=== PATIENT | female | born 1975 | race Caucasian/White ===

== ENCOUNTER 2016-05-27 09:30 | Inpatient (IN) ==
--- NOTE | 2016-05-27 10:07 | Emergency Department Note ---
Shanique Francisco Brittany, am scribing for, and in the presence of, Silvio Banegas MD 09: 57. Makenzie Francisco James D, MD, personally performed the services described in this documentation, ascribed by [place] in my presence, and it is both accurate and complete . Arrival - Arrival Chief Complaint: Abdominal / Flank Pain Stated Complaint: SEVERE LRQ PAIN ED Nursing Triage Note: C/O right lower abdominal pain and nausea starting last night at 830pm. Denies vomiting or diarrhea. Mode of Arrival: Ambulatory Limitations: No Limitations Source: Patient Time Seen by Provider: 05/27/16 09:45 - History of Present Illness HPI Narrative: This is a 40 y/o white female,who presents to the ED with c/o abd pain which started last night. She locailzes the pain to the lower right quadrant. She denies any vomiting or dysruia but notes some nausea.Her LNMP was 05/20/2016. Pt has no other complaints/pain in the ED at this time. Pt has a PMHx of migraines and HTN. Pt denies a surgical Hx. Pt denies a family medical Hx. Pt denies a social Hx. Onset (ago): hour(s) (Started last night) Consistency: constant Severity: moderate Date of Last Menstrual Period: 05/19/16 Allergies/Adverse Reactions: Allergies Allergy/AdvReac Type Severity Reaction Status Date / Time Penicillins AdvReac ANAPHYLAXIS Verified 05/27/16 09:34 Home Medications: Home Medications Medication Instructions Recorded Confirmed Type Sertraline [Zoloft] 100 mg PO BID 05/27/16 05/27/16 History Topiramate [Topamax] 25 mg PO DAILY 05/27/16 05/27/16 History Triamterene/Hydrochlorothiazid 1 each PO DAILY 05/27/16 05/27/16 History [Triamterene-Hctz 37.5-25 mg Tb] lamoTRIgine [LaMICtal Tab] 100 mg PO BID 05/27/16 05/27/16 History Review of System - Review of System 12 point system: reviewed and no additional remarkable complaints except as stated - Review of System Gastrointestinal: Present: abdominal pain, nausea. Absent: vomiting Genitourinary female: Absent: dysuria Medical,Surgical,& Family Hx - Medical History Cardio: History of: Hypertension Neurology: History of: Migraine - Social History Smoking Status: Never smoker Frequency of Alcohol Use: None Type of Drug Use: None Exam Vital Signs: Vital Signs Temperature 97 F L 05/27/16 09:34 Pulse Rate 82 05/27/16 10:38 Respiratory Rate 22 05/27/16 10:38 Blood Pressure 122/77 05/27/16 10:38 O2 Sat by Pulse Oximetry 99 05/27/16 10:38 GENERAL: This is a well-nourished well-developed white female in no apparent distress. VITAL SIGNS: Reviewed HEENT: Head is atraumatic and normocephalic. Pupils are equal round react to light. Extraocular movements are intact. Oropharynx is benign with moist mucous membranes. NECK: Neck is soft and supple without tenderness. There are no masses. There is no lymphadenopathy. LUNGS: Lungs are clear to auscultation. Chest rises symmetrically. There is no chest wall tenderness. CV: Heart is regular rate and rhythm without murmurs rubs or gallops. ABDOMEN: Abdomen is soft, right lower quadrant abdominal tenderness to palpation with some guarding, no rib. There are no abdominal abnormal masses palpated. There is no organomegaly. Bowel sounds are present and active. SKIN: Skin is warm and dry. No rash. EXTREMITIES: Patient has full range of motion without tenderness. There is no pedal edema. Results - Labs CBC & BMP: 05/27/16 10:04 Lab Results: I have reviewed the patients labs - Diagnostic Findings Procedure: Abdominal x-ray: image reviewed by me (Nonspecific gas pattern, no free air, gas in the rectum), Chest x-ray: image reviewed by me (No cardiomegaly , no pleural effusions, no infiltrate) Disposition Clinical Impression: RLQ abdominal pain Case discussed with: patient Condition: Stable
[2016-05-27 10:16] LABS: Basophils % 0.2 % (0.0-0.8); Eosinophils % 0.2 % (0.00-10.9); Hemoglobin 12.1 GM/DL (12.0-16.0); Immature Granulocytes % 0.4 %; Immature Granulocytes Absolute 0.07 #; Lymphocytes # 1.9 10*3/uL (1.4-4.0); Lymphocytes % 11.3 % (21.3-54.2); Mean Corpuscular HGB Conc 31.8 GM/DL (32-36); Mean Corpuscular Hemoglobin 27 PG (27-34); Mean Corpuscular Volume 83.3 FL (87-102); Monocytes # 0.8 10*3/uL (0.11-0.8); Monocytes % 4.9 % (1.7-12.7); Neutrophils # 14.2 10*3/uL (1.4-7.4); Platelet Count 280 T/CUMM (130-400); Red Blood Count 4.56 MC/CUMM (3.8-5.5); Red Cell Distribution Width 14.1 % (9.3-17.3); White Blood Count 17.1 T/CUMM (4-12)
[2016-05-27 10:22] LABS: Apearance,Urine Slightly Hazy (Clear); Bacteria,Urine Occasional /HPF (Few); Bilirubin,Urine Negative (Negative); Blood, Urine Negative (Negative); Glucose,Urine (UA) Negative (Negative); Ketones,Urine Negative (Negative); Mucus,Urine Occasional /LPF (Occasional); Nitrite,Urine Negative (Negative); Protein,Urine Negative; RBC,Urine 1 /HPF (0-4); Squamous Epithelial Cell,Urine Occasional /HPF (0-10); Urine Color Yellow (Yellow); Urine Specific Gravity 1.019 (1.001-1.035); Urine Urobilinogen < 2.0 EU/DL (0.2-1.0); WBC,Urine 1 /HPF (0-6)
--- NOTE | 2016-05-27 10:46 | XRay Report ---
Portable chest Date: 05/27/2016 Clinical history: Generalized abdominal pain Comparison: None Technique: Portable AP sitting chest Findings: The heart is normal in size. Expiratory chest with no definite acute parenchymal findings. Unremarkable mediastinum and osseous structures. Impression: Negative expiratory chest. PROCEDURE INTERPRETED AT [facility] DEPARTMENT OF RADIOLOGY Final Report Signed by: Dr. Hannah Dorsey
[2016-05-27 10:47] LABS: Albumin 3.9 G/DL (3.4-5.0); Bilirubin,Total 0.4 MG/DL (0.2-1.0); Calcium 9.1 MG/DL (8.5-10.1); Osmolality,Calculated 271.8 MOS/KG (273-304); Potassium 3.4 MMOL/L (3.5-5.1); Total Protein 8.1 G/DL (6.4-8.3)
--- NOTE | 2016-05-27 10:55 | XRay Report ---
Exam: XR abdomen 2V Date: 05/27/2016 9:55 AM Comparison: None Indication: Generalized abdominal pain Technique:[Supine and erect abdomen] Findings: Nonobstructed bowel gas pattern with no free air. Scattered fecal material in the colon. Nonspecific calcifications in the pelvis. No acute osseous findings. Impression: Nonobstructed bowel gas pattern. Increased fecal material in the colon. PROCEDURE INTERPRETED AT [facility] DEPARTMENT OF RADIOLOGY Final Report Signed by: Dr. Hannah Dorsey
--- NOTE | 2016-05-27 11:29 | CT Report ---
Exam: CT abdomen pelvis w con Date: 05/27/2016 10:57 AM Comparison: None Indication: Right lower quadrant pain Technique:[Sequential axial scans of the abdomen and pelvis were obtained following injection of 100 cc of Omnipaque 350. Coronal and sagittal 2-D reconstructions were obtained. Total DLP: 1884.60] Findings: No acute findings at the visualized lung bases. The liver is borderline in size with the left lobe extending to the level of the spleen. Diffuse fatty infiltration with no masses, dilated ducts, or calcified gallstones. The spleen is borderline in size to minimally enlarged. The pancreas, adrenal glands, and kidneys have an unremarkable appearance except for probably tiny left lower pole renal cyst. Calcification in the wall of the nondilated abdominal aorta with no adjacent adenopathy. Small fat-containing umbilical hernia with no dilatation of the small bowel. Dilated retrocecal appendix measuring 13 mm in diameter. Adjacent fluid and soft tissue stranding. No free air or evidence of diverticulitis. No pelvic masses are identified. Unremarkable urinary bladder. Degenerative changes are noted. Impression: Evidence of acute appendicitis. Fatty infiltration of the liver which is borderline in size. The spleen is borderline in size to minimally enlarged. Possible minute left lower pole renal cyst. Small umbilical hernia. PROCEDURE INTERPRETED AT [facility] DEPARTMENT OF RADIOLOGY Final Report Signed by: Dr. Hannah Dorsey
[2016-05-27] MEDS ORDERED: metroNIDAZOLE INJ 500 MG in PREMIX 1 EACH IV ONE (12:23)
[2016-05-27] MEDS ORDERED: LEVOFLOXACIN INJ 500 MG in PREMIX 1 EACH IV ONE (12:23)
[2016-05-27] MEDS ORDERED: ONDANSETRON 4 MG/2 ML VIAL IV PRN ×2 (12:25→18:09)
[2016-05-27] MEDS ORDERED: ACETAMINOPHEN 325 MG TABLET PO PRN (12:25)
[2016-05-27] MEDS ORDERED: LACTATED RINGERS 1,000 ML IV SCH (12:30)
[2016-05-27] MEDS: HYDROmorphone 2 MG/1 ML VIAL IV PRN ×6 (12:30→22:57)
[2016-05-27] MEDS ORDERED: BISACODYL 5 MG TABLET PO PRN (12:32)
--- NOTE | 2016-05-27 13:10 | General Surg History&Physical ---
Assessment and Plan - Time spent with patient Time spent with patient: Less than 30 minutes (1) Acute appendicitis Status: Acute Assessment and plan: 40WF w history of migraines and melanoma admitted by dr guadalupe w acute appendicitis and leukocytosis. she will be taken to the OR for laparoscopic appendectomy today by dr guadalupe. dr guadalupe to see and examine pt. Current Visit: Yes History of Present Illness Chief complaint: abdominal pain/nausea History of present illness: 40WF w history of migraines and melanoma came into ED w 1 day history of abdominal pain and nausea. pt states the pain started in the center of her abdomen about 830 last night and progressed in severity. it slowly moved into her RLQ and is associated w nausea but no vomiting. she denies SOB, CP, fevers, or any abdominal surgery. pt's CT scan is showing evidence of acute appendicitis w dilated retrocecal appendix w adjacent fluid and stranding. it is also showing a small umbilical hernia. her wbc are 17.1 w a left shift and K + is low at 3.4. upon exam, she is uncomfortable due to pain and her abd is soft , but she is very tender throughout. pain is greater in RLQ w rebound. dr guadalupe has been asked to admit. Home Medications Medication Instructions Recorded Confirmed Type Sertraline [Zoloft] 100 mg PO BID 05/27/16 05/27/16 History Topiramate [Topamax] 25 mg PO DAILY 05/27/16 05/27/16 History Triamterene/Hydrochlorothiazid 1 each PO DAILY 05/27/16 05/27/16 History [Triamterene-Hctz 37.5-25 mg Tb] lamoTRIgine [LaMICtal Tab] 100 mg PO BID 05/27/16 05/27/16 History Allergies Allergy/AdvReac Type Severity Reaction Status Date / Time Penicillins AdvReac ANAPHYLAXIS Verified 05/27/16 09:34 Medical,Surgical,& Family Hx - Medical History Cardio: History of: Hypertension Neurology: History of: Migraine - Social History Smoking Status: Never smoker Frequency of Alcohol Use: None Type of Drug Use: None Exam - Constitutional Vitals: Period Temp Pulse Resp BP Sys/Sidhu Pulse Ox Last 24 Hr 97 F-97 F 74-105 16-22 122-143/77-88 99-100 40WF, mild distress due to pain, alert and oriented chest clear cv rrr abd soft, ttp throughout, greater in RLQ, rebound ext no edema - Constitutional Constitutional: Present: as per HPI Quality Measures - VTE Contraindication to Pharmacological VTE Prophylaxis: High Risk of Bleeding Results - Labs CBC & BMP: 05/27/16 10:04 05/27/16 10:04 Lab Results: I have reviewed the past 24 hour labs - Diagnostic Findings Procedure: CT Abdomen and Pelvis: report reviewed by me (acute appy)
[2016-05-27] MEDS ORDERED: DIAZEPAM 5 MG TABLET PO ONE (13:24)
[2016-05-27] MEDS ORDERED: LEVOFLOXACIN INJ 100 ML IV ONE (13:57)
[2016-05-27] MEDS ORDERED: metroNIDAZOLE 500 MG/100 ML PREMIX IV ONE (13:57)
[2016-05-27] MEDS ORDERED: KETOROLAC 15 MG/1 ML VIAL IV PRN (14:00)
[2016-05-27] MEDS ORDERED: DIAZEPAM 5 MG TABLET ONE (14:21)
[2016-05-27] MEDS ORDERED: PANTOPRAZOLE 40 MG TABLET PO ONE ×2 (14:21→14:25)
[2016-05-27] MEDS ORDERED: BUPIVACAINE MPF 0.25% /EPI 30 ML VIAL ONE (15:53)
[2016-05-27] MEDS ORDERED: LIDOCAINE 1%/EPI INJ 20 ML VIAL ONE (15:54)
[2016-05-27] MEDS ORDERED: HYDROmorphone 2 MG/1 ML VIAL ONE (16:13)
[2016-05-27] MEDS ORDERED: ROCURONIUM 100 MG/10 ML VIAL IV ONE (16:35)
[2016-05-27] MEDS ORDERED: LIDOCAINE 2% 5 ML VIAL ONE (16:35)
[2016-05-27] MEDS ORDERED: DEXAMETHASONE 10 MG/1 ML VIAL ONE (16:35)
[2016-05-27] MEDS ORDERED: KETOROLAC 30 MG/1 ML VIAL ONE (16:35)
[2016-05-27] MEDS ORDERED: GLYCOPYRROLATE 0.4 MG/2 ML VIAL ONE (16:35)
[2016-05-27] MEDS ORDERED: NEOSTIGMINE 10 MG/10 ML VIAL ONE (16:35)
[2016-05-27] MEDS ORDERED: ONDANSETRON 4 MG/2 ML VIAL ONE (16:35)
[2016-05-27] MEDS ORDERED: PROPOFOL 200 MG/20 ML VIAL IV ONE (16:35)
--- NOTE | 2016-05-27 17:42 | Operative Note ---
Date of procedure: 05/27/16 Pre-op diagnosis: acute appendicitis Post-op diagnosis: same Procedure: Procedure performed: Laparoscopic appendectomy Procedure in detail: After informed consent was obtained, the patient was taken operating suite and laid supine on the operating table. After general anesthesia was induced Chacon catheter was placed and the abdomen was prepped and draped in usual sterile fashion. After procedural pause local anesthetic and straighten the skin and subcutaneous tissue above the umbilicus. Incision was made and dissection carried down through skin and soft tissue. Fascia identified and grasped with Ionia's and elevated. Fascial incision was made. Abdominal cavity was entered bluntly. Finger sweep revealed no adhesions. Crespo trocar was placed under direct visualization. Pneumoperitoneum achieved. Camera was inserted. Bowel mesentery inspected and found be free of any violation. Next patient was placed in Trendelenburg position rotated to the left. 5 mm suprapubic and left lower quadrant trochars were placed under visualization. The appendix was identified in the right lower quadrant. It appeared acutely inflamed. The appendix was grasped and elevated. A window was created in the mesentery at the base of the appendix. The appendiceal base was then transected using a DANIELLA stapling device with a vascular load. Mesoappendix was transected in the same fashion. Appendix was placed in the Endo Catch sac and removed through the Crespo trocar site. Pneumoperitoneum reachieved and the right lower quadrant was irrigated and suctioned. Staple lines found be intact. There was some slight oozing along the mesenteric staple line which was controlled with cautery. Afterward there was good hemostasis with no leakage of any succus or sanguinous fluid. All the irrigant remained clear and resection. Trochars were removed as the abdomen desufflated. Fascia at the Crespo trocar site was closed using 0 Vicryl figure- of-eight interrupted suture. Wounds irrigated and suction skin closed with georgie. Sterile dressings applied. The patient was excellent and taken recovery room in stable condition. All lap and needle counts were correct at the end of the case. Anesthesia: GETA Surgeon / Physician: Juan Diego Kang Estimated blood loss: other (less than 10 mL) Specimens: other (appendix) Condition: stable Disposition: PACU Results - Labs CBC & BMP: 05/27/16 10:04 05/27/16 10:04 Discharge Plan - Discharge Medications No Action Topiramate [Topamax] 25 mg PO DAILY Triamterene/Hydrochlorothiazid [Triamterene-Hctz 37.5-25 mg Tb] 1 each PO DAILY lamoTRIgine [LaMICtal Tab] 100 mg PO BID Sertraline [Zoloft] 100 mg PO BID - Follow Up or Referral - Forms/Instructions
--- NOTE | 2016-05-27 17:48 | Anesthesia ---
Anesthesia Post OP - Post Ansesthetic Evaluation Patient seen in post op: Yes Resp: within normal limits CV: within normal limits Mental: within normal limits Temp: within normal limits [id number]: within normal limits Nausea and Vomiting: within normal limits Pain: within normal limits
[2016-05-27] MEDS ORDERED: SEVOFLURANE 1 UNIT/15 MINUTE INH ONE (17:51)
[2016-05-27] MEDS ORDERED: fentaNYL 100 MCG/2 ML VIAL ONE (17:52)
[2016-05-27] MEDS ORDERED: MIDAZOLAM 2 MG/2 ML VIAL ONE (17:52)
[2016-05-27] MEDS ORDERED: ACETAMINOPHEN 1,000 MG/100 ML VIAL IV ONE (17:52)
[2016-05-27] MEDS: lamoTRIgine 100 MG TABLET PO SCH ×2 (20:53)
[2016-05-27] MEDS: TOPIRAMATE 25 MG TABLET PO SCH (20:53)
[2016-05-27] MEDS: SERTRALINE 100 MG TABLET PO SCH (20:53)
[2016-05-27] MEDS: TRIAMTERENE/HCTZ 37.5-25 MG TABLET PO SCH (20:53)
[2016-05-28] MEDS: HYDROmorphone 2 MG/1 ML VIAL IV PRN ×2 (01:12→07:19)
[2016-05-28 04:50] LABS: Basophils % 0.1 % (0.0-0.8); Hematocrit 35.7 VOL% (35.7-47.0); Hemoglobin 11.1 GM/DL (12.0-16.0); Immature Granulocytes % 0.7 %; Immature Granulocytes Absolute 0.08 #; Lymphocytes # 0.7 10*3/uL (1.4-4.0); Lymphocytes % 6.4 % (21.3-54.2); Mean Corpuscular HGB Conc 31.1 GM/DL (32-36); Mean Corpuscular Hemoglobin 27 PG (27-34); Mean Corpuscular Volume 85.8 FL (87-102); Mean Platelet Volume 9.4 FL (9.6-12.0); Monocytes # 0.1 10*3/uL (0.11-0.8); Monocytes % 1.2 % (1.7-12.7); Neutrophils % 91.6 % (38.7-73.9); Platelet Count 268 T/CUMM (130-400); Red Blood Count 4.16 MC/CUMM (3.8-5.5); Red Cell Distribution Width 14.1 % (9.3-17.3)
[2016-05-28 05:26] LABS: Band Neutrophils 1 % (0-10); Lymphocytes 3 % (20-55); Segmented Neutrophils 95 % (50-85)
[2016-05-28 05:27] LABS: Platelet Estimate Normal; Total Cells Counted 100
[2016-05-28] MEDS ORDERED: PANTOPRAZOLE 40 MG TABLET PO SCH (09:00)
[2016-05-28] MEDS: SERTRALINE 100 MG TABLET PO SCH (09:02)
[2016-05-28] MEDS: lamoTRIgine 100 MG TABLET PO SCH (09:02)
[2016-05-28] MEDS: TRIAMTERENE/HCTZ 37.5-25 MG TABLET PO SCH (09:03)
[2016-05-28] MEDS: TOPIRAMATE 25 MG TABLET PO SCH (09:03)
--- NOTE | 2016-05-28 09:47 | Discharge Summary ---
Hospital Course - Hospital Course Hospital Course: 40WF w history of migraines admitted by dr guadalupe w acute appendicitis. she was taken to the OR on 05/27/16 for lap appy. she has done well. she is eating and ambulating and pain is controlled. dc home w shirlene and 1-2wk fu w dr guadalupe. dc instructions given to pt and in the room. - Time spent with patient Time with patient DS: Less than 30 minutes Diagnosis - Discharge Diagnosis (1) Acute appendicitis Status: Acute Specialty Discharge - Follow Up or Referrals Follow up with: Juan Diego Guadalupe MD [Physician] - 06/05/16 10:15 am Discharge Plan - Discharge Data Disposition: Disch To Home/Self Care Condition at Discharge: Stable Discharge Diet: advance to your usual diet Activity: increase activity as tolerated, no lifting Hygiene: may shower Driving: other (no driving if taking pain pills) Contact your physician if you experience:: fever over 101, Nausea/Vomiting Wound / Dressing Care Instructions: ok to shower daily w mild soap and water, pat dry. ok to leave open to the air or cover prn w bandaids. - Discharge Medications New HYDROcodone/ACETAMIN 7.5-325 [[place] 7.5-325] 1 - 2 tablet PO Q4H PRN #30 tablet PRN Reason: Pain Moderate (4-7) Continue Topiramate [Topamax] 25 mg PO DAILY Triamterene/Hydrochlorothiazid [Triamterene-Hctz 37.5-25 mg Tb] 1 each PO DAILY lamoTRIgine [LaMICtal Tab] 100 mg PO BID Sertraline [Zoloft] 100 mg PO BID - Follow Up or Referral Follow Up: Juan Diego Guadalupe MD [Physician] - 06/05/16 10:15 am - Forms/Instructions Instructions: Open Appendectomy (DC) Exam - Constitutional Vitals: Period Temp Pulse Resp BP Sys/Sidhu Pulse Ox Last 24 Hr 97 F-100.1 F 67-126 16-20 108-135/65-96 91-100 Discharge Results Labs on day of discharge: Labs from last 24 hours 05/28/16 05/27/16 04:01 18:59 WBC 11.0 D RBC 4.16 Hgb 11.1 L 11.0 L Hct 35.7 35.0 L MCV 85.8 L MCH 27 MCHC 31.1 L RDW 14.1 Plt Count 268 MPV 9.4 L Neut % (Auto) 91.6 H Lymph % (Auto) 6.4 L [place] % (Auto) 1.2 L Eos % (Auto) 0.0 Baso % (Auto) 0.1 Neut # (Auto) 10.0 H Lymph # (Auto) 0.7 L [place] # (Auto) 0.1 L Eos # (Auto) 0.0 Baso # (Auto) 0.0 Total Counted 100 Immature Gran % 0.7 Nucleated RBC % 0.0 Immature Gran # 0.08 Segmented Neutrophils 95 H Band Neutrophils 1 Lymphocytes 3 L Monocytes 1 L Nucleated RBCs # 0.00 Platelet Estimate Normal DS: Provider Date of admission: 05/27/16 12:25 Attending physician on admission: Juan Diego Guadalupe MD Consults: 05/27/16 13:22 Consult to Pharmacy [CONS] Routine Reason for Pharmacy Consult: Adjust Meds Renal Funct Discharging clinician: ALEX Dorsey Expected date of discharge: 05/28/16
[2016-05-28 11:05] VITALS: BP 130/76
--- NOTE | 2016-05-29 10:45 | Pathology Report from [facility] ---
ACCESSION # : [id number] PATIENT NAME : Maik Butler ORDERING DR : Juan Diego Kang MD CLINICAL HX: Acute appendicitis POST-OP DX: Same SPECIMEN INFO: Appendix GROSS DESCRIPTION: Received in formalin labeled "MAIK BUTLER" is an appendix and attached mesoappendix measuring 7.5 x 1.1 cm. The appendix is rushing isabel with a fibrinous exudate noted at the proximal end. The lumen is focally edematous at the proximal end and contains soft slightly hyperemic isabel material with no fecaliths or perforations identified. [employer] sections are submitted in one cassette. DIAGNOSIS FOR MAIK BUTLER: APPENDIX, APPENDECTOMY: Acute appendicitis. SERVICE DATE: 05/28/2016 REPORT DATE: 05/29/2016 PATHOLOGIST: Shana Jordan M.D. [facility]
== END 2016-05-28 11:45 | disposition home or self-care (01) | DRG 343 ==
LOC: N.ED 09:30 → N.SDSINP 12:25 → N.ED 12:57 → N.SDSINP 12:59 → N.3E 19:32
PROVIDERS: ADMIT Surgery; ATTEND Surgery